=== PATIENT | male | born 2000 | race Caucasian/White ===

== ENCOUNTER 2018-12-22 21:02 | Emergency (ER) | payer BC ==
[2018-12-22 21:12] VITALS: BP 142/82
== END 2018-12-22 21:15 | disposition left against medical advice (07) ==
DX: Z53.21 Procedure and treatment not carried out due to patient leaving prior to being seen by health care provider (principal)

== ENCOUNTER 2018-12-23 07:07 | Emergency (ER) | payer BC ==
[2018-12-23 07:13] VITALS: BP 127/70
--- NOTE | 2018-12-23 07:28 | EDPHY ---
H & P Time Seen by Provider: 12/23/18 07:15 HPI/ROS: CHIEF COMPLAINT: Left-sided facial pain HISTORY OF PRESENT ILLNESS: Started with sore throat and mild cough about a week ago, developed into left-sided cheek and facial pain about 4 days ago. Worse with movement of his jaw, but he is able the eat drink and swallow normally. Not associated with earache, does have a mild headache. No neck stiffness or fever or chills or skin rash. No dental symptoms. No injury or trauma. He does have a lot of nasal discharge with blood and greenish color discharge. More on the left side. Says he has some chest tightness but denies chest pain to me. Says he is here because of nasal congestion left facial pain was not allowing him to sleep last night. REVIEW OF SYSTEMS: Eye: no change in vision ENT: HPI Cardiac: No palpitations or syncope Pulmonary: HPI Abdomen: no vomiting, diarrhea, abdominal pain Musculoskeletal: no back pain or neck pain Skin: no rash Neuro: HPI Constitutional: Subjective fever and chills : no urinary symptoms A comprehensive 10 point review of systems is otherwise negative aside from elements mentioned in the history of present illness. PAST MEDICAL HISTORY: Appendectomy Social history: Denies current drug use General Appearance: Alert and conversant, cooperative. Eyes: No scleral icterus. ENT, Mouth: No trismus, mild pharyngeal erythema, no gum swelling or dental abnormality. No facial swelling but tender to palpation over the left maxillary sinus. Normal tympanic membranes. He has swollen nasal turbinates with discharge. No stridor or drooling. Respiratory: Normal respiratory effort, breath sounds equal, lungs are clear to auscultation. Cardiovascular: Regular rate and rhythm. Gastrointestinal: Abdomen is soft and non tender. Neurological: Alert, face symmetric, normal motor and sensory in extremities. Skin: Warm and dry, no rashes. Musculoskeletal: Normal range of motion of the neck. Psychiatric: Not agitated. Emergency Department course/MDM: Reasonable to treat with oral amoxicillin for tenderness to palpation over the left maxillary sinus with facial pain being the primary symptom and nasal discharge. Antibiotics discussed including risk including diarrhea, potential benefit, and consented. Higher dose of ibuprofen, change to pseudoephedrine decongestant. Does not appear to have surgical condition or evidence of impending airway compromise. Smoking Status: Current some day smoker Constitutional: Initial Vital Signs Temperature (C) 37.1 C 12/23/18 07:11 Heart Rate 91 12/23/18 07:11 Respiratory Rate 16 12/23/18 07:11 Blood Pressure 127/70 H 12/23/18 07:11 O2 Sat (%) 95 12/23/18 07:11 O2 Delivery Mode Room Air Allergies/Adverse Reactions: No Known Allergies Allergy (Verified 12/23/18 07:10) Home Medications: Medication Instructions Recorded Acetaminophen [Tylenol 325mg (*)] 650 mg PO Q4HRS PRN tab 07/08/18 Ibuprofen [Motrin (*)] 600 mg PO Q8HRS #30 tab 07/08/18 Amoxicillin Trihydrate 500 mg PO Q8 #21 cap 12/23/18 [Amoxicillin 500mg capsule] Mucinex 12/23/18 MDM/Departure - Depart Disposition: Home, Routine, Self-Care Clinical Impression: Left maxillary sinusitis, Head cold Condition: Good Instructions: Sinusitis (ED) Additional Instructions: Go to the pharmacy counter and ask for generic Sudafed or pseudoephedrine for better decongestant. Oral ibuprofen or Advil 600 mg every 8 hr for the next 3 days as needed for discomfort. Please follow-up with referral primary care doctor if you're not better later this week. Prescriptions: Amoxicillin Trihydrate [Amoxicillin 500mg capsule] 500 mg PO Q8 #21 cap Referrals: BRANDI MELVIN [Other] - As per Instructions Shell Shelby DO [Doctor of Osteopathy] - As per Instructions
== END 2018-12-23 07:35 | disposition home or self-care (01) ==
DX: J32.0 Chronic maxillary sinusitis (principal); J00 Acute nasopharyngitis [common cold]